=== PATIENT | male | born 1955 | race Hispanic/Latino ===

== ENCOUNTER → 2021-11-05 | Outpatient (CLI) | payer MEDICARE ==
[~2021-11-05] MED LIST: IOHEXOL 350 MG/ML 100ML INFUS..BTL IV ONE; IOHEXOL-350 50ML VIAL IV ONE
== END | disposition home or self-care (01) ==
LOC: RAH 10:05
PROVIDERS: ATTEND Internal Medicine Cardiovascular Disease
DX: I70.291 Other atherosclerosis of native arteries of extremities, right leg (principal); I70.0 Atherosclerosis of aorta; I70.8 Atherosclerosis of other arteries; I73.9 Peripheral vascular disease, unspecified; N26.1 Atrophy of kidney (terminal); Z99.2 Dependence on renal dialysis
CPT/HCPCS: 75635; Q9967 ×2